=== PATIENT | male | born 1985 ===

== ENCOUNTER 2021-02-23 10:58 | Observation (INO) ==
[2021-02-23] MEDS ORDERED: HYDROmorphone 2 MG/1 ML VIAL IV STA (11:28)
[2021-02-23] MEDS ORDERED: HYDROmorphone 2 MG/1 ML VIAL ONE (11:29)
[2021-02-23] MEDS ORDERED: ONDANSETRON 4 MG/2 ML VIAL ONE (11:30)
[2021-02-23] MEDS ORDERED: ONDANSETRON 4 MG/2 ML VIAL IV STA (11:41)
[2021-02-23] MEDS ORDERED: hydrALAZINE 20 MG/1 ML VIAL IV STA (11:57)
[2021-02-23 12:23] LABS: Basophils # 0.1 10*3/uL (0.0-0.2); Basophils % 0.6 % (0.0-0.8); Eosinophils # 0.3 10*3/uL (0.0-0.87); Eosinophils % 3.6 % (0.00-10.9); Hematocrit 45.6 VOL% (42.0-52.0); Immature Granulocytes % 0.5 %; Immature Granulocytes Absolute 0.04 #; Lymphocytes # 3.1 10*3/uL (1.4-4.0); Lymphocytes % 36.8 % (21.2-54.2); Mean Corpuscular HGB Conc 35.1 GM/DL (32-36); Mean Platelet Volume 12.3 FL (9.6-12.0); Monocytes % 8.4 % (1.7-12.7); Neutrophils % 50.1 % (38.7-73.9); Platelet Count 209 T/CUMM (130-400); Red Blood Count 4.85 MC/CUMM (3.8-5.5); Red Cell Distribution Width 11.5 % (9.3-17.3); White Blood Count 8.4 T/CUMM (4-12)
[2021-02-23 12:42] LABS: Albumin 3.9 G/DL (3.4-5.0); Calcium 8.4 MG/DL (8.5-10.1); Potassium 3.6 MMOL/L (3.5-5.1); Total Protein 7.6 G/DL (6.4-8.2)
[2021-02-23] MEDS ORDERED: MORPHINE 4 MG/1 ML VIAL IV PRN (14:32)
[2021-02-23] MEDS ORDERED: ONDANSETRON 4 MG/2 ML VIAL IV PRN (14:32)
[2021-02-23] MEDS ORDERED: GLUCAGON 1 MG VIAL IM PRN (14:32)
[2021-02-23] MEDS ORDERED: ACETAMINOPHEN 325 MG TABLET PO PRN (14:32)
[2021-02-23] MEDS ORDERED: DEXTROSE 50% 25 GM/50 ML VIAL IV PRN (14:32)
[2021-02-23] MEDS ORDERED: hydrALAZINE 20 MG/1 ML VIAL IV PRN (14:32)
[2021-02-23] MEDS ORDERED: cefTRIAXone 1,000 MG in SODIUM CHLORIDE 0.9% 100 ML IV ONE (16:05)
[2021-02-23] MEDS: SODIUM CHLORIDE 0.9% 1,000 ML IV SCH (19:00)
[2021-02-24] MEDS: SODIUM CHLORIDE 0.9% 1,000 ML IV SCH (07:05)
[2021-02-24] MEDS ORDERED: TAMSULOSIN 0.4 MG CAPSULE PO SCH (09:00)
[2021-02-24] MEDS ORDERED: hydroCHLOROthiazide 25 MG TABLET PO SCH (09:00)
[2021-02-24] MEDS ORDERED: cefTRIAXone 1,000 MG in SODIUM CHLORIDE 0.9% 100 ML IV ONE (10:30)
[2021-02-24] MEDS ORDERED: ONDANSETRON 4 MG/2 ML VIAL ONE (12:20)
[2021-02-24] MEDS ORDERED: propofoL 200 MG/20 ML VIAL IV ONE (12:20)
[2021-02-24] MEDS ORDERED: fentaNYL 100 MCG/2 ML VIAL ONE (12:20)
[2021-02-24] MEDS ORDERED: LIDOCAINE 2% 5 ML VIAL ONE (12:20)
[2021-02-24] MEDS ORDERED: MIDAZOLAM 2 MG/2 ML VIAL ONE (12:20)
[2021-02-24] MEDS ORDERED: PHENYLEPHRINE 10 MG/1 ML VIAL IV ONE (13:14)
[2021-02-24] MEDS ORDERED: SEVOFLURANE 1 UNIT/15 MINUTE INH ONE (13:58)
[2021-02-24] MEDS ORDERED: ONDANSETRON 4 MG/2 ML VIAL IV PRN (14:01)
[2021-02-24] MEDS ORDERED: KETOROLAC 30 MG/1 ML VIAL IV ONE (14:02)
[2021-02-24] MEDS: HYDROmorphone 2 MG/1 ML VIAL IV PRN ×2 (14:15→14:20)
[2021-02-24 16:14] VITALS: BP 144/92
== END 2021-02-24 18:20 | disposition home or self-care (01) ==
LOC: N.ED 10:58 → N.EDINP 10:58 → SUATTDRO 14:32 → N.3E 16:10
PROVIDERS: ADMIT Internal Medicine; ATTEND Family Medicine